=== PATIENT | male | born 1975 | race Caucasian/White ===

== ENCOUNTER → 2018-05-14 | Outpatient (CLI) | payer OTHER ==
--- NOTE | 2018-05-14 12:18 | ECHOS ---
STRESS ECHOCARDIOGRAM DATE OF SERVICE: 05/14/2018 INDICATIONS: Chest pain. MEDICATIONS: Synthroid, vitamin D. BASELINE HEART RATE: 62 BASELINE BLOOD PRESSURE: 146/50 MAXIMUM HEART RATE: 158 MAXIMUM BLOOD PRESSURE: 172/71 85% MPHR: 151 100% MPHR: 178 METS: 11 MAXIMUM STAGE REACHED: III TOTAL EXERCISE TIME: 10 minutes CLINICAL INFORMATION: Baseline EKG shows sinus rhythm, normal axis, normal intervals. Patient exercised on [place] protocol for a total of 10 minutes achieving 11 METs 88% of predicted maximal heart rate without chest pain. At peak exercise there was [address]-segment depression noted in the inferolateral leads. Baseline echo shows normal left ventricular size, wall motion and systolic function. Postexercise, there is normal hyperdynamic response of all segments of myocardium noted. CONCLUSIONS: 1. Excellent exercise tolerance. 2. Abnormal stress test by EKG criteria. 3. No exercise-induced wall motion abnormalities. MMODL / IJN: [id number] /
== END | disposition home or self-care (01) ==
LOC: RADNMMAIN 10:07
PROVIDERS: ATTEND Family Medicine
DX: R94.31 Abnormal electrocardiogram [ECG] [EKG] (principal); R07.9 Chest pain, unspecified; R01.1 Cardiac murmur, unspecified
CPT/HCPCS: 93225; 93226; 93351